=== PATIENT | female | born 1940 | race Caucasian/White ===

== ENCOUNTER 2017-01-11 08:56 | Outpatient (CLI) | payer MEDICARE ==
[~2017-01-11] VITALS: Ht 160 cm; Wt 50.0 kg
[~2017-01-11 08:56] MED LIST: ASMANEX0.135 GM INH; ICAPS AREDS1 TAB.SA PO; RESTASIS EYE DR30 EA EACH EYE; SYNTHROID25 MCG PO; VENTOLIN HFA18 GM INH; VESICARE5 MG PO
[2017-01-11 09:31] VITALS: BP 127/72; Ht 160 cm; Wt 50.0 kg
== END 2017-01-11 09:40 | disposition home or self-care (01) ==
LOC: D.OPS 08:56
DX: M81.0 Age-related osteoporosis without current pathological fracture (principal)

== ENCOUNTER 2017-06-28 18:04 | Inpatient (IN) | payer MEDICARE ==
[~2017-06-28] VITALS: Ht 160 cm; Wt 50.8 kg
[2017-06-28 19:27] LABS: BASOPHILS 0.1 % (0-2); EOSINOPHILS 1.2 % (0-7); HEMATOCRIT 41.5 % (36.0-48.0); HEMOGLOBIN 13.7 g/dL (12-16); IMMATURE GRANULOCYTES 0.4 % (0-5); LYMPHOCYTES 13.2 % (15-50); MCH 25.7 pg (26.0-34.0); MCV 77.7 fL (80.0-100.0); MEAN PLATELET VOLUME 7.9 fL (7.4-10.4); NEUTROPHILS 79.1 % (40-80); RBC 5.34 10x6/uL (4.00-5.40); RDW 14.2 % (11.5-14.5); WBC 13.4 10x3/uL (4.8-10.8)
[2017-06-28 19:28] LABS: PLATELET COUNT 254 10x3/uL (130-400)
[2017-06-28 19:37] LABS: APTT 30.1 SECONDS (22.8-39.4); INR 1.11 (0.85-1.17); PROTIME 13.9 SECONDS (11.6-15.0)
[2017-06-28 19:43] LABS: ALBUMIN 3.4 g/dL (3.4-5.0); ANION GAP 14.4 mmol/L (8-16); BILIRUBIN - TOTAL 0.33 mg/dL (0.2-1.3); CALCIUM 8.5 mg/dL (8.5-10.1); CARBON DIOXIDE 23.9 mmol/L (21.0-32.0); POTASSIUM - SERUM 4.3 mmol/L (3.5-5.1); PROTEIN - SERUM 7.1 g/dL (6.4-8.2)
[2017-06-29] VITALS (14 sets, daily range): BP systolic 106–138; BP diastolic 45–74; Ht 160 cm; Wt 50.8 kg
--- NOTE | 2017-06-29 01:14 | NUR ---
REC'D FROM PACU PER BED TO ROOM 2212 A 76 Y/O W/FE PER SERVICES DR. QUEVEDO/MARLON. POSTOP LEFT TOTAL HIP SURGERY. DRESSING TO LEFT HIP C/D/I. IV PATENT RT FOREARM OF NS AT 75CC'S/HR. RAMSAY TO BEDSIDE DRAINAGE WITH YELLOW URINE. HOB UP 30 DEGREES.O2 AT 2L/M WITH O2 SAT READING AT 92-93. RATE INCREASED TO 3L/M O2 SAT=95%
--- NOTE | 2017-06-29 01:23 | NUR ---
C/O NAUSEA NO EMESIS ZOFRAN 8MG IVP GIVEN FOR NAUSEA.
--- NOTE | 2017-06-29 02:26 | NUR ---
PATIENT MORE AWAKE NOW TAKING ICE CHIPS PO NOW.
--- NOTE | 2017-06-29 04:01 | NUR ---
EYES CLOSED RESPIRATIONS WITH EASE AND UNLABORED. DRESSING TO LEFT HIP C/D/I ICE BAG IN PLACE TO SITE IV PATENT RT ARM OF NS AT 75CC'S/HR. HOB UP 35 DEGREES SPOUSE AT BEDSIDE.
--- NOTE | 2017-06-29 13:45 | OP ---
PATIENT NAME: SANDRA MONTAÑO MEDICAL RECORD: [id number] :41 LOCATION:[id number] ADMISSION DATE:06/28/17 SURGEON: RUDY MASON DO DATE OF OPERATION: 06/28/2017 DATE OF SERVICE: 06/28/2017 PROCEDURE PERFORMED: Left total hip arthroplasty. PREOPERATIVE DIAGNOSIS: Left femoral neck/fracture that was displaced. POSTOPERATIVE DIAGNOSIS: Left femoral neck/fracture that was displaced. INDICATIONS: Ms. Montaño is a 76-year-old female who fell onto her left hip today, sustained a left femoral neck fracture. She was seen in the ER, had been n.p.o. since noon and was told that she would probably need a total hip after CT was done and seen that indeed was a femoral neck fracture. This was told that treatment would be suggested and she agreed to proceed forward with the procedure and signed consent for left total hip arthroplasty. DESCRIPTION OF PROCEDURE: The patient was taken to the operative suite, was laid in supine position, given general anesthetic and intubated, given a gram of vancomycin preoperatively for preoperative antibiotics. Once she was intubated, the boot was placed on the left lower leg and the patient was moved over to the table, placing the Medacta leg medrano. The right leg was placed into a well-leg medrano and well padded. The left arm was taken across the body and well padded. The left hip was then prepped and draped in sterile fashion. Timeout was performed, everyone was in agreement with the correct side, site, patient and procedure. Once this was done, the incision commenced over the tensor fascia solomon muscle belly. Careful dissection was made down to that and the fascia. The fascia was then divided with the plasma knife. The fascia of that muscle belly was taken anteriorly and the muscle belly was taken posteriorly down to the rectus muscle fascia. The fascia was then incised over the rectus muscle and the Adson Leslie was used to change position to push the rectus muscle medially and the tensor fascia solomon laterally. Careful dissection was then made down to the vessels of the anterior branch of the lateral femoral circumflex. Aquamantys was used on these to coagulate them and then they were tied off as well and then divided with the plasma knife. Once this was done, the capsule was encountered and the capsule was seemed to be very thin. Capsulectomy was performed at that time and the femoral neck fracture was encountered. I freshened up the neck cut at that time with a saw and the femoral head was removed. Once the femoral head was removed, the Charnley retractor was placed into the wound opening up the acetabulum. The labrum was then removed around the acetabulum as well as the ligamentum teres. All bleeding was coagulated with the Aquamantys at that time, then commenced reaming at a 44, first medializing and then up to 46 and 48, and has the head measured at 48. A 48 cup was then placed in position and seemed to be very firm. Once the cup was put into position, the femur was then addressed. The femur was externally rotated, extended and adducted and a cookie cutter was used to get into the femoral canal and the canal finder. Once this was done, broaching began first starting with a double 0, then up a 2 and a [address] and seemed to be somewhat snug. An x-ray was taken once this was seen that it could be out a little more lateral. The tube was taken out and the cookie cutter was used to get more lateral bone off the neck and then a 2 broach was put back in and buried and then a 3 broach was put into place and seemed to be very snug and x-ray was OPERATIVE REPORT [id number] SANDRA MONTAÑO taken and it seemed to be in good position and filled the canal well. I then decided to go with a minus neck and a 48 head for the dual mobility head and this was then trialed. X-ray was taken and seemed to be the proper size. This was then taken out and a 3 collared stem from the Medacta AMIStem was put into the femur and impacted in. When this happened, the head was put into place and the hip was reduced. Once the hip was reduced, x-ray was taken and seemed to be in good position and good length on the femur and this was done under fluoroscopy. The wound was then thoroughly irrigated with saline. Vane was placed deep into the wound and then the tensor fascia solomon fascia was closed with 0 Vicryl, first 3 [id number] stitches and then ran with a locking stitch down the fascia itself. Once this was done, the Vane was then placed over that and the skin was closed with 2-0 Vicryl in an inverted interrupted fashion. Prineo Dermabond was placed on the skin and the wound was then covered with a Telfa and Tegaderm. The patient was awakened and taken to recovery in stable condition. Blood loss was 200 mL. TRANSINT:[id number] Voice Confirmation ID: [id number] DOCUMENT ID: [id number] RUDY MASON DO at 1345 CC: [id number] DICTATION DATE: 06/29/17 0035 HVAC OPERATIONS TECHNICIAN: 06/29/17 0901 ADM IN [facility] [address] [place] [address]
--- NOTE | 2017-06-29 14:19 | NUR ---
PT SITTING UP IN CHAIR WATCHING TV, NO NEEDS VOICED AT THIS TIME.
--- NOTE | 2017-06-29 16:34 | NUR ---
Patient Name: SANDRA MONTAÑO Admission Status: ER Accout number: [id number] Admission Date: 06-28-2017 : 1941 Admission Diagnosis: Attending: ARACELI QUEVEDO Current LOS: 1 Anticipated DC Date: Planned Disposition: Home Primary Insurance: MEDICARE A & B Discharge Planning Comments: CM met with patient to assess discharge planning needs. Patient stated that she lives independently at home where she would like to return on discharge. Patient stated that her will be the one to drive her home. She does not have any steps in her home. She does have a shower chair, but will need a walker prior to discharge. Patient talked about doing Outpatient PT with Dr Quevedo's office at discharge. Patient will need a walker at discharge. CM will continue to follow and assist with discharge planning needs. PCP: Van Christy [phone] [employer] Architect: Genevieve Benoit * Is the patient Alert and Oriented? Yes 0 * How many steps to enter\exit or inside your home? 0 0 * PCP Van 0 * Pharmacy [facility] 0 * Preadmission Environment Home with Family 0 * ADLs Independent 0 * Equipment Shower Chair 0 * List name and contact numbers for known caregivers / representatives who currently or will assist patient after discharge: Westley () [phone] * Community resources currently utilized None 0 * Additional services required to return to the preadmission environment? Yes 0 * Can the patient safely return to the preadmission environment? Yes 0 * Has this patient been hospitalized within the prior 30 days at any hospital? No 0 Grand Total: 0
--- NOTE | 2017-06-29 19:27 | NUR ---
REC'D IN BED AWAKE AND ALERT. RESP EVEN AND UNLABORED WITH NO DISTRESS NOTED. CAN EXPRESS NEED AND WANTS. ASSESSMENT COMPLFETED. C/L IN REACH BEDSIDE.
[2017-06-30 04:00] VITALS: BP 118/58
[2017-06-30 05:11] LABS: MCH 25.6 pg (26.0-34.0); MCHC 32.9 g/dL (31.0-37.0); MCV 77.8 fL (80.0-100.0); MEAN PLATELET VOLUME 7.8 fL (7.4-10.4); RDW 14.1 % (11.5-14.5)
[2017-06-30 05:15] LABS: HEMATOCRIT 29.5 % (36.0-48.0); HEMOGLOBIN 9.7 g/dL (12-16); RBC 3.79 10x6/uL (4.00-5.40); WBC 9.5 10x3/uL (4.8-10.8)
--- NOTE | 2017-06-30 07:05 | NUR ---
REPORT RECEIVED FROM HOME HOSPICE AIDE NURSE. CALL LIGHT IN REACH.
[2017-06-30 08:10] VITALS: BP 130/64
--- NOTE | 2017-06-30 09:19 | NUR ---
ASSESSMENT COMPLETED. AM MEDS ADMINISTERED. CALL LIGHT IN REACH. BED ALARM ON. WILL CONTINUE WITH PLAN OF CARE.
--- NOTE | 2017-06-30 10:05 | NUR ---
IN CHAIR PER PT. AT BEDSIDE. CALL LIGHT IN REACH
--- NOTE | 2017-06-30 12:42 | NUR ---
RESTASIS EYE DROPS. RAMSAY CATH DC'D WITH TIP INTACT.
[2017-06-30 12:53] VITALS: BP 121/50
--- NOTE | 2017-06-30 14:20 | NUR ---
NO NEEDS VOICED AT THIS TIME. CALL LIGHT IN REACH.
--- NOTE | 2017-06-30 14:29 | NUR ---
ORDER FOR WALKER SENT TO [facility] WITH THE ANTICIPATION THAT THE PATIENT COULD BE DISCHARGED OVER THE WEEKEND. CM WILL CONTINUE TO FOLLOW AND ASSIST WITH DSICHARGE PLANNING NEEDS
--- NOTE | 2017-06-30 14:57 | NUR ---
[facility] CALLED AND STATED THAT THEY WOULD DELIVER WALKER TODAY TO PATIENT
[2017-06-30 15:50] VITALS: BP 137/69
--- NOTE | 2017-06-30 16:45 | NUR ---
DENIES NEEDS. CALL LIGHT IN REACH.
--- NOTE | 2017-06-30 18:29 | NUR ---
NO CHANGES IN INITIAL ASSESSMENT. CALL LIGHT IN REACH. SCDs TO BLE. BED ALARM ON. IN ROOM. WILL CONTINUE WITH PLAN OF CARE.
[2017-06-30 20:00] VITALS: BP 116/45
[2017-07-01] VITALS: BP 117/57
[2017-07-01 04:00] VITALS: BP 134/62
[2017-07-01 04:40] LABS: BASOPHILS 0.1 % (0-2); EOSINOPHILS 0.2 % (0-7); HEMATOCRIT 29.2 % (36.0-48.0); HEMOGLOBIN 9.6 g/dL (12-16); IMMATURE GRANULOCYTES 0.1 % (0-5); MCH 25.3 pg (26.0-34.0); MCHC 32.9 g/dL (31.0-37.0); MEAN PLATELET VOLUME 7.7 fL (7.4-10.4); MONOCYTES 8.9 % (2-11); NEUTROPHILS 74.7 % (40-80); PLATELET COUNT 162 10x3/uL (130-400); RBC 3.79 10x6/uL (4.00-5.40); RDW 13.8 % (11.5-14.5); WBC 9.9 10x3/uL (4.8-10.8)
[2017-07-01] MEDS ORDERED: HYDROCODON-ACE1 EAC7 PO (06:19)
[2017-07-01] MEDS ORDERED: ELIQUIS2.5 MG PO (06:19)
--- NOTE | 2017-07-01 08:00 | NUR ---
PT AOX4 RESP EVEN AND NONLABORED PT DENIES NEEDS AT THIS TIME IV TO RIGHT FOREARM PATENT AND INTACT AT THIS TIME SRX2 BED AT LOWEST SETTING CALL LIGHT WITHIN REACH WILL CONTINUE TO MONITOR
[2017-07-01 08:45] VITALS: BP 131/71
[2017-07-01 13:33] VITALS: BP 135/74
[2017-07-01 16:45] VITALS: BP 140/76
[2017-07-01 20:00] VITALS: BP 134/61
[2017-07-02] VITALS: BP 130/62
[2017-07-02 04:00] VITALS: BP 105/45
--- NOTE | 2017-07-02 08:28 | NUR ---
AWAKE AND ALERT. ORIENTED X3. NO C/O AT THIS TIME. LUNGS ARE CLEAR BILATERALLY, NO COUGH NOTED. SKIN IS INTACT WITHOUT REDNESS EXCEPT INCISION TO LEFT HIP WHICH HAS A DRY INTACT DRESSING IN PLACE. SL TO RIGHT FOREARM IS PATENT WITHOUT REDNESS AT INSERTION SITE. SCD'S IN PLACE. DENIES NEEDS. AT BEDSIDE.
[2017-07-02] MEDS ORDERED: FERROUS SULFAT325 MG PO (09:37)
--- NOTE | 2017-07-02 12:44 | NUR ---
REQUESTED AND GIVEN ONE HYDROCODONE PO PRIOR TO DISCHARGE HOME. DISCHARGED WITH [facility]. DISCHARGE INSTRUCTIONS GIVEN BOTH VERBALLY AND WRITTEN. ALL QUESTIONS ANSWERED. PATIENT AND VERBALIZED UNDERSTANDING OF SAME. NEEDED PRESCRIPTIONS GIVEN TO PATIENT. SL TO RIGHT FOREARM D/S WITH CATHETER INTACT. ALL BELONGINGS WITH PATIENT.
== END 2017-07-02 12:48 | disposition home or self-care (01) | DRG 470 ==
LOC: D.ER 18:04 → D.MS 20:24 → D.SDCHOLD 06-29 12:49 → D.MS 07-02 12:48
PROVIDERS: Emergency Medicine; Orthopaedic Surgery; ADMIT Family Medicine
PROC: 0SRB0JZ Replacement of Left Hip Joint with Synthetic Substitute, Open Approach (ICD-10-PCS; principal; 2017-06-28 22:36)
DX: S72.002A Fracture of unspecified part of neck of left femur, initial encounter for closed fracture (principal); W10.9XXA Fall (on) (from) unspecified stairs and steps, initial encounter; M81.0 Age-related osteoporosis without current pathological fracture; J45.909 Unspecified asthma, uncomplicated

== ENCOUNTER → 2017-07-19 12:05 | Outpatient (CLI) | payer MEDICARE ==
[~2017-07-19] VITALS: Ht 160 cm; Wt 54.5 kg
[~2017-07-19 12:05] MED LIST changes: +ELIQUIS2.5 MG PO; +FERROUS SULFAT325 MG PO; +HYDROCODON-ACE1 EAC7 PO
[2017-07-19 12:43] VITALS: BP 139/62; Ht 160 cm; Wt 54.5 kg
== END | disposition home or self-care (01) ==
LOC: D.OPS 12:05
DX: M81.0 Age-related osteoporosis without current pathological fracture (principal)

== ENCOUNTER 2018-01-18 10:53 | Outpatient (CLI) | payer MEDICARE ==
[~2018-01-18] VITALS: Ht 160 cm; Wt 45.9 kg
[2018-01-18 11:33] VITALS: Ht 160 cm; Wt 45.9 kg
== END 2018-01-18 11:42 | disposition home or self-care (01) ==
LOC: D.OPS 10:53
DX: M81.0 Age-related osteoporosis without current pathological fracture (principal)

== ENCOUNTER 2018-07-25 08:48 | Outpatient (CLI) | payer MEDICARE ==
[~2018-07-25] VITALS: Ht 160 cm; Wt 46.8 kg
[2018-07-25 09:17] VITALS: BP 110/70; Ht 160 cm; Wt 46.8 kg
== END 2018-07-25 09:45 | disposition home or self-care (01) ==
LOC: D.OPS 08:48
DX: M81.0 Age-related osteoporosis without current pathological fracture (principal); Z01.812 Encounter for preprocedural laboratory examination

== ENCOUNTER → 2019-01-11 07:57 | Outpatient (CLI) | payer MEDICARE ==
[2018-07-25 09:17] VITALS: BMI 18.2
== END | disposition home or self-care (01) ==
LOC: D.MRI 07:57
PROVIDERS: ATTEND Pain Medicine Interventional Pain Medicine
DX: M48.062 Spinal stenosis, lumbar region with neurogenic claudication (principal)

== ENCOUNTER 2019-01-29 11:40 | Outpatient (CLI) | payer MEDICARE ==
[~2019-01-29] VITALS: Ht 160 cm; Wt 47.7 kg
[2019-01-29 12:59] VITALS: BP 147/82; Ht 160 cm; Wt 47.7 kg
== END 2019-01-29 13:12 | disposition home or self-care (01) ==
LOC: D.OPS 11:40
PROVIDERS: ATTEND Family Medicine
DX: M81.0 Age-related osteoporosis without current pathological fracture (principal)

== ENCOUNTER 2019-08-06 13:11 | Outpatient (CLI) | payer MEDICARE ==
[~2019-08-06] VITALS: Ht 160 cm; Wt 49.1 kg
[2019-08-06 13:36] VITALS: BP 138/98; Ht 160 cm; Wt 49.1 kg
--- NOTE | 2019-08-06 13:50 | NUR ---
PT DC INSTRUCTIONS REVIEWED AT THIS TIME, PT VERBALIZES UNDERSTANDING.
--- NOTE | 2019-08-06 13:52 | NUR ---
PT LEAVING OPS AT THIS TIME, AMBULATORY, NAD NOTED.
== END 2019-08-06 13:52 | disposition home or self-care (01) ==
LOC: D.OPS 13:11
PROVIDERS: ATTEND Family Medicine
DX: M81.0 Age-related osteoporosis without current pathological fracture (principal)

== ENCOUNTER 2020-02-05 10:15 | Outpatient (CLI) | payer MEDICARE ==
[~2020-02-05] VITALS: Ht 160 cm; Wt 46.8 kg
[2020-02-05 10:29] VITALS: BP 140/82; Ht 160 cm; Wt 46.8 kg
== END 2020-02-05 10:36 ==
LOC: D.OPS 10:15
PROVIDERS: ATTEND Family Medicine
DX: M81.0 Age-related osteoporosis without current pathological fracture (principal)